=== PATIENT | male | born 1995 | race Caucasian/White ===

== ENCOUNTER 2020-05-30 13:04 | Outpatient (CLI) | payer OTHER, SELFPAY ==
[2020-05-30] MEDS: iohexol 300 mg/mL 50 mL Btl PO (14:00)
--- NOTE | 2020-05-30 14:30 | CT_ITS ---
WS: [id number] EXAM: CT OF THE ABDOMEN AND PELVIS WITH CONTRAST DATE OF EXAMINATION: 05/30/2020, 1509 hours COMPARISON: CT of the abdomen and pelvis from 07/19/2015 HISTORY: 24 years old with generalized abdominal pain. Most severe above the level of the umbilicus for the la st 2 months. TECHNIQUE: Transaxial computed tomography images obtained through the abdomen and pelvis utilizing oral contrast as well as 95 mL of Omnipaque 300 IV contrast with images acquired in the portal phase. Images viewe d in multiple windows with reconstructions. DLP: 1147.[address] scans at [facility] use at least one of these dose optimization techniques: automat ed exposure control; mA and/or kV adjustment per patient size (includes targeted exams where dose is matched to clinical indication); or iterative reconstruction. FINDINGS: The lung bases are clear. Heart size is normal. The aorta is normal in caliber and opacifies normall y. The liver is normal in attenuation and enhancement. The gallbladder is normally distended without identifiable stones or pericholecystic inflammatory sapna nge. No biliary dilatation is seen. The portal vein is patent. Spleen is normal in size and enhancement. Pancreas is normal in appearance. Adrenal glands are normal in appearance. Both kidneys enhance normally without evidence of mass lesion. No obstructive uropathy. No renal or u reteral calculus. Stomach is normal in appearance. Small bowel is fairly normal in caliber. Colon is decompressed. No f indings of bowel obstruction, free air, free fluid or inflammatory process noted. Normal appendix in the right false pelvis region. Shotty adenopathy throughout the mesenteric arcade fairly nonspecific. Also some slight shotty adenop athy in the retroperitoneum. Most likely related to underlying reactive gastroenteritis. There are findings of an anterior abdominal wall hernia just above the level of the umbilicus contain ing properitoneal fat. The hernia neck is about 14 mm. The hernia sac estimated at approximately 33 x 26 x 18 mm in size. No inguinal hernia is seen. The prostate is normal in size. Bladder is minimally distended otherwise unremarkable. Bone density is normal. No acute bony abnormality is seen. There are degenerative spondylosis changes demonstrated with a disc herniation in the right lateral recess/right medial neural foraminal positi on. CT/CT abdomen pelvis w con* [id number] IMPRESSION: Imaging findings of a supraumbilical hernia containing properitoneal fat. No kaylah wel involvement seen. No findings of bowel obstruction, free air, free fluid or inflammatory process. No renal or ureteral calculus or obstructive uropathy. Adenopathy within the abdomen and retroperitoneum most likely reactive in natur e. Other nonemergent findings as described in the body of the report.
[2020-05-30] MEDS: iohexol 300 mg/mL 100 mL Btl IV (15:12)
== END 2020-05-30 13:05 | disposition home or self-care (01) ==
LOC: RADWPI 13:06
PROVIDERS: Visit Provider Surgery
DX: R10.84 Generalized abdominal pain (principal); R59.0 Localized enlarged lymph nodes
CPT/HCPCS: 74177; Q9967

== ENCOUNTER → 2020-06-14 08:56 | Outpatient (BNVA) | payer OTHER, SELFPAY | PROVIDERS: Visit Provider Internal Medicine | DX: Z20.818 Contact with and (suspected) exposure to other bacterial communicable diseases (principal); K42.9 Umbilical hernia without obstruction or gangrene | CPT/HCPCS: 87635 ==

== ENCOUNTER 2020-06-18 07:59 | Day surgery (SDC) | payer OTHER, SELFPAY ==
[2020-06-14 18:06] VITALS: BMI 28.5
[2020-06-18] VITALS (7 sets, daily range): BP systolic 125–142; BP diastolic 75–94; PULSE 74–92; RESP 12–20; TEMP 36.3–36.6; O2SAT 95–99
[2020-06-18] MEDS: sodium chloride 0.9% 1,000 ML 30 ML IV (08:22)
--- NOTE | 2020-06-18 08:31 | ANES.PREANE2 ---
Pre-Anesthetic Assessment Pre-Anesthetic Assessment: Height/Weight: Height 1.8 m Weight 92.986 kg Temp Pulse Resp BP Pulse Ox 97.8 F 78 18 136/75 98 06/18/20 08:09 06/18/20 08:09 06/18/20 08:09 06/18/20 08:09 06/18/20 08:09 Preop Diagnosis: Abdominal wall hernia Proposed Procedure: Operation Date: 06/18/20 09:20 Proposed Procedures p Open Umbilical Hernia Repair w/ poss Mesh [id number] K42.9(Not Applicable) - Dante Delatorre MD Familial anesthetic complications: none Was Beta Lizzy taken within 24 hours: N/A Last intake: Intake Last Liquid Date 06/17/20 Last Liquid Time 21:00 Last Solid Date 06/17/20 Last Solid Time 21:00 Social: Social History: No alcohol and No tobacco Exam: Pre-Anes Outpt Exam: alert, oriented x 3, clear to auscultation bilaterally and regular rate & rhythm Airway: Cervical ROM: WNL MP: 2 Dentition: Full Anesthetic Plan: ASA status: 1 Anesthesia: General Risk of > 500 ml blood loss (7ml/kg in children): No Meds/Allergies Current Medications: Current Medications Generic Name Dose Route Start Last Admin Trade Name Freq PRN Reason Stop Dose Admin Sodium Chloride 1,000 mls @ 30 ml s/hr 06/18/20 07:30 06/18/20 08:22 Sodium Chloride 0.9% IV 06/19/20 07:29 30 mls/hr .Q24H SHARI Administration PFSH Anesthesia PFSH: Medical History Abdominal pain Umbilical hernia Family History Denies family history of Anesthesia complication Bleeding disorder Data Anesthesia Cardiac Studies: No Data to Display
--- NOTE | 2020-06-18 08:35 | W.PM.OPSUD ---
Surgery/Procedure H&P Update DATE OF PROCEDURE: June 18, 2020 DATE H&P PERFORMED: 06/05/20 H&P UPDATE INFORMATION: I have reviewed H&P completed within last 30 days, I have examined patient prior to procedure and No changes to prior documentation PREOP DIAGNOSIS: Abdominal wall hernia PRIMARY INDICATION FOR PROCEDURE: The same PLANNED PROCEDURE: Operation Date: 06/18/20 09:20 Proposed Procedures p Open Umbilical Hernia Repair w/ poss Mesh 95704 K42.9(Not Applicable) - Dante Delatorre MD
[2020-06-18] MEDS: lidocaine 2% INJ 20 mL INJECTION (10:26)
--- NOTE | 2020-06-18 10:59 | P.OP_ITS ---
Operative Report Date of procedure: June 18, 2020 Pre-op Diagnosis: Abdominal wall hernia Post-op diagnosis: same Post-op Findings: Herniated omentum with defect of the fascia about 2 inches in diameter Procedure Done: Open supraumbilical ventral hernia repair with polypropylene mesh placement Implants: Polypropylene mesh Specimens removed/disposition: Hernial sac and content Surgeon: Dante Delatorre Model Maker Plaster: Surgical jessie Vasquez and Sherlyn Circulating nurse Melissa Anesthesia: General (industrial hygenist Yung) Estimated blood loss (mL): 10 Complications: No immediate complication Condition: stable Disposition: same day Brief History: This is a pleasant 24 years old gentleman presented to my practice with symptomatic supraumbilical hernia. After thorough history physical examination reviewing the chart and images with my personal interpretation, I did assessment counselor the patient for open ventral hernia repair with possible mesh placement. Informed consent per chart Procedure: Patient was identified in holding area and the site of the hernia was marked by me ,Patient was brought then to the operating room, general endotracheal anesthesia was administered by the anesthesia provider.prophylactic IV antibiotics were given per protocol Time-out was done verifying the patient's name/date of /planned procedure and destination after the procedure, all were in agreement. SCDs confirmed to be functioning, preoperative antibiotics administered per protocol, and beta jarek protocol was confirmed. Prep and drape of the abdomen was done under the usual sterile technique and Ioband was placed there after. I started by supra aumbilical skin incision, I was able to identify the incarcerated omentum within hernia, dissection was carried all the way down to the fascia, hernia sac was then opened and the sac was excised in addition to excess omental tissues they were excised, appropriate hemostasis was achieved and Tissues excised sent for permanent pathology I was able to free the overlying fat on top of the fascia, facilitate primary closure At that point the fascial defect was about inches-two inches in diameter, after freeing all the adhesions, viable small bowel were appreciated, under direct visualization I was able to use #1 PDS to repair the defect primarily, as a figure of 8 sutures under direct visualization, thorough irrigation of the wound was then achieved and hemostasis. Followed by application of polypropylene sheet mesh about 5 x 5 cm(on lay) anchored to the underlying fascia by 2-0 silk sutures.. Following that 2-0 Vicryl was used to attach the umbilicus to the underlying fascia, followed by deep dermal interrupted stitches, followed by 3-0 Vicryl, then 4-0 Monocryl was used for subcuticular closure of the skin incision.Lidocaine 2% was used for local infiltration to help postoperative pain,followed by surgical glue and pressure dressing.Abdominal binder was then placed. Counts of sponges,needles and instruments were completed at the end of the procedure. Patient was then extubated. Patient tolerated the procedure well and was taken to the recovery area in stable condition I was present for the whole entire procedure
[2020-06-18] MEDS: meperidine 50 mg/mL INJ 12.5 MG IVP (11:20)
--- NOTE | 2020-06-18 11:37 | SUR.PHASEI ---
PT AWAKES EASILY , DENIES PAIN VSS PT TO OPS PT REQUESTS SPRITE TO SIP ON. HANDOFF AT BEDSIDE IN OPS
[2020-06-18] MEDS: ondansetron 2 mg/ML SDV 2 mL 4 MG IVP ×2 (12:13→12:51)
[2020-06-18] MEDS: promethazine 25 mg Tablet 12.5 MG PO (13:30)
[2020-06-18] MEDS: scopolamine 1.5 Patch 1 PATCH TRANSDERMA (13:34)
--- NOTE | 2020-06-18 13:36 | ANE.PACU2 ---
Inpatient post-anesthesia follow up: Airway intact: Yes Vital signs: Temperature 98 F Pulse Rate 83 Respiratory Rate 16 Blood Pressure 125/88 Pulse Oximetry 98 Oxygen Delivery Me thod Room Air Oxygen Flow Rate Fraction of Inspir ed Oxygen Hydration adequate: Yes Nausea and vomiting: Yes Pain level: 1 Mental status: Baseline Additional Comments: Phenergan PO helped PONV
== END 2020-06-18 13:43 | disposition home or self-care (01) ==
PROVIDERS: Visit Provider Surgery
PROC: (CPT 49561; principal; 2020-06-18 09:20)
DX: K43.9 Ventral hernia without obstruction or gangrene (principal)
CPT/HCPCS: 49561; 49568; 12345; 88302; 96365; J0131; J0690; J1100; J2175; J2405; J2704; J2710; J3010; J3490; J7030; Q0169